=== PATIENT | female | born 1960 | race African-American/Black ===

== ENCOUNTER 2020-08-14 20:28 | Emergency (ER) | payer OTHER ==
--- OUTSIDE RECORDS SUMMARY | 2020-08-14 20:31 | XMS REPORT | Clinical Summary ---
:1961 Author Organization [facility] Address [address] [place] [address] Care Team Providers Name Role Phone Unavailable Primary Care Provider Unavailable Allergies Not on File Medications Not on file Active Problems Not on file Social History Tobacco Use Types Packs/Day Years Used Date Never Assessed Sex Assigned at Date Recorded Not on file Last Filed Vital Signs Not on file Plan of Treatment Health Maintenance Due Date Last Done Comments BREAST CANCER SCREENING 1961 COLON CANCER SCREENING COLONOSCOPY 1961 CERVICAL CANCER SCREENING PAP ONLY (Age 21-65) 12/30/1983 LIPID PANEL 12/30/2007 INFLUENZA VACCINE (#1) 2020 Results Not on fileafter 08/14/2019
[2020-08-14] MEDS ORDERED: TRAMADOL HCL 50 MG TAB ONE (20:57)
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
--- NOTE | 2020-08-14 21:26 | EDPHYS ---
Physician Documentation [facility] Name: Ashley Avlares Age: 59 yrs Sex: Female : 1960 Arrival Date: 08/14/2020 Time: 20:30 Bed 5 Private MD: ED Physician Rishi Kimbrough HPI: 08/14 20:45 This 59 yrs old Black Female presents to ER via Ambulatory with complaints of Thumb tw4 Injury. 20:45 The patient or guardian reports pain. The complaints affect the IP of left thumb and tw4 MCP of left thumb. Context: The problem was sustained at home. Onset: The symptoms/episode began/occurred 2 day(s) ago. Modifying factors: The symptoms are alleviated by nothing, the symptoms are aggravated by nothing. Severity of symptoms: At their worst the symptoms were moderate, in the emergency department the symptoms are unchanged. The patient has not experienced similar symptoms in the past. Historical: - Allergies: 20:39 Amoxicillin; ll1 - PMHx: 20:39 High Cholesterol; Hypertension; ll1 - PSHx: 20:39 Tubal ligation; Hernia repair; back sx; ll1 - Immunization history:: Flu vaccine is not up to date. - Social history:: Smoking status: Patient denies any tobacco usage or history of. ROS: 20:45 Constitutional: Negative for fever, chills, and weight loss, Eyes: Negative for injury, tw4 pain, redness, and discharge, Cardiovascular: Negative for chest pain, palpitations, and edema, Respiratory: Negative for shortness of breath, cough, wheezing, and pleuritic chest pain, Abdomen/GI: Negative for abdominal pain, nausea, vomiting, diarrhea, and constipation, Back: Negative for injury and pain, Skin: Negative for injury, rash, and discoloration, Neuro: Negative for headache, weakness, numbness, tingling, and seizure. 20:45 MS/extremity: Positive for swelling, tenderness. Exam: 20:45 Constitutional: This is a well developed, well nourished patient who is awake, alert, tw4 and in no acute distress. Head/Face: Normocephalic, atraumatic. Chest/axilla: Normal chest wall appearance and motion. Nontender with no deformity. No lesions are appreciated. Cardiovascular: Regular rate and rhythm with a normal S1 and S2. No gallops, murmurs, or rubs. Normal PMI, no JVD. No pulse deficits. Respiratory: Lungs have equal breath sounds bilaterally, clear to auscultation and percussion. No rales, rhonchi or wheezes noted. No increased work of breathing, no retractions or nasal flaring. Abdomen/GI: Soft, non-tender, with normal bowel sounds. No distension or tympany. No guarding or rebound. No evidence of tenderness throughout. Skin: Warm, dry with normal turgor. Normal color with no rashes, no lesions, and no evidence of cellulitis. Neuro: Awake and alert, GCS 15, oriented to person, place, time, and situation. Cranial nerves II-XII grossly intact. Motor strength 5/5 in all extremities. Sensory grossly intact. Cerebellar exam normal. Normal gait. 20:45 Musculoskeletal/extremity: Extremities: noted in the dorsal aspect of proximal phalanx of left thumb and left thumbnail: decreased ROM, pain, swelling, tenderness. Vital Signs: 20:37 BP 146 / 90; Pulse 73; Resp 16; Temp 97.9; Pulse Ox 100% ; Pain 4/10; ll1 21:36 BP 129 / 89; Pulse 71; Resp 16; Temp 98; Pulse Ox 99% on R/A; rv MDM: 20:32 Patient medically screened. tw4 21:24 Data reviewed: vital signs, nurses notes, radiologic studies, plain films. Special tw4 discussion: I discussed with the patient/guardian in detail that at this point there is no indication for admission to the hospital. It is understood, however, that if the symptoms persist or worsen the patient needs to return immediately for re-evaluation. 08/14 20:37 Order name: Hand Left 3 View XRAY tw4 Administered Medications: 20:46 Drug: traMADol 50 mg {Note: RASS 0.} Route: PO; rv 21:36 Follow up: Response: No adverse reaction; Pain is decreased; RASS: Alert and Calm (0) rv Disposition: 08/14/20 21:25 Discharged to Home. Impression: Contusion of left thumb without damage to nail. - Condition is Stable. - Discharge Instructions: Hand Contusion. - Prescriptions for Tramadol 50 mg Oral Tablet - take 1 tablet by ORAL route every 8 hours as needed; 12 tablet. - Medication Reconciliation Form, Thank You Letter, Antibiotic Education, Prescription Opioid Use form. - Follow up: Private Physician; When: Upon discharge from the Emergency Department; Reason: Recheck today's complaints, Continuance of care, Re-evaluation by your physician. - Problem is new. - Symptoms have improved. Signatures: Dispatcher [employer] EDRishi Ruiz MD MD tw4 Blayne Prasad RN RN rv Petra Henriquez RN RN ll1 Corrections: (The following items were deleted from the chart) 21:37 21:25 08/14/2020 21:25 Discharged to Home. Impression: Contusion of left thumb without rv damage to nail. Condition is Stable. Forms are Medication Reconciliation Form, Thank You Letter, Antibiotic Education, Prescription Opioid Use. Follow up: Private Physician; When: Upon discharge from the Emergency Department; Reason: Recheck today's complaints, Continuance of care, Re-evaluation by your physician. Problem is new. Symptoms have improved. tw4
[2020-08-14 21:53] VITALS: BP 129/89; TEMP 98; O2SAT 99
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
== END 2020-08-14 21:37 | disposition home or self-care (01) ==
LOC: ER 20:28
DX: S60.012A Contusion of left thumb without damage to nail, initial encounter (principal); W23.0XXA Caught, crushed, jammed, or pinched between moving objects, initial encounter; Y93.9 Activity, unspecified; Y92.9 Unspecified place or not applicable; Z88.1 Allergy status to other antibiotic agents; I10 Essential (primary) hypertension
CPT/HCPCS: 99284

== ENCOUNTER 2023-10-23 21:23 | Observation (INO) | payer OTHER ==
[2023-10-23] MEDS ORDERED: NA CHLORIDE 0.9% 2,000 ML ONE (21:49)
[2023-10-23 22:04] LABS: Absolute Lymphocytes (CBC) 1.2 K/uL (0.7-4.9); Lymphocytes % 12.3 % (15.3-44.8); MCV 96.2 fL (80-100); MPV 10.1 fL (7.6-11.3); Platelets 177 thou/uL (152-406); RBC Red Blood Cell Count 4.67 M/uL (3.86-4.86)
--- NOTE | 2023-10-23 22:21 | RAD REPORT ---
EXAM DESCRIPTION: Stepht Single View10/23/2023 10:09 pm CLINICAL HISTORY: CHEST PAIN COMPARISON: Chest Pa And Lat (2 Views) dated 01/29/2019; Chest Pa And Lat (2 Views) dated 09/20/2017; CHEST SINGLE VIEW dated 07/02/2010 TECHNIQUE: Portable AP view of the chest. FINDINGS: The lungs are clear. No pneumothorax or effusion. The cardiomediastinal contours are unre markable. IMPRESSION: No acute cardiopulmonary process.
[2023-10-23 22:23] LABS: Potassium 4.4 mEq/L (3.5-5.1); Troponin High Sensitivity 9.2 pg/mL (<58.9)
[2023-10-23] MEDS ORDERED: ONDANSETRON 4 MG/2 ML VIAL IV PRN (22:27)
[2023-10-23] MEDS ORDERED: ACETAMINOPHEN 325 MG TABLET PO PRN (22:27)
--- NOTE | 2023-10-23 22:27 | ER ---
Nurse's Notes [facility] Name: Ashley White Age: 62 yrs Sex: Female : 1960 Arrival Date: 10/23/2023 Time: 21:23 Bed 14 Private MD: Diagnosis: Hypotension, unspecified;Chest pain, unspecified;Dizziness and giddiness Presentation: 10/23 21:31 Chief complaint: EMS states: pt takes Metoprolol 50mg twice a day, pt took doses too rv close within each doses, pt is hypotensive at scene, complained of CP [employer], CP improved. pt is also complaining of dizziness and weakness upon arrival to ED. Coronavirus screen: At this time, the client does not indicate any symptoms associated with coronavirus-19. Ebola Screen: No symptoms or risks identified at this time. Initial Sepsis Screen: Does the patient meet any 2 criteria? No. Patient's initial sepsis screen is negative. Does the patient have a suspected source of infection? No. Patient's initial sepsis screen is negative. Risk Assessment: Do you want to hurt yourself or someone else? Patient reports no desire to harm self or others. Onset of symptoms. 21:31 Method Of Arrival: EMS: [facility] rv 21:31 Acuity: RAYO 2 rv Triage Assessment: 21:33 General: Appears comfortable, Behavior is calm, cooperative. Pain: Denies pain. Neuro: rv Level of Consciousness is awake, alert, obeys commands, Oriented to person, place, time, situation, Reports dizziness, weakness. Cardiovascular: Capillary refill < 3 seconds Patient's skin is warm and dry. Chest pain is denied. Respiratory: Airway is patent Respiratory effort is even, unlabored. GI: No signs and/or symptoms were reported involving the gastrointestinal system. : No signs and/or symptoms were reported regarding the genitourinary system. Derm: Skin is intact. Historical: - Allergies: 21:33 Amoxicillin; rv - PMHx: 21:33 High Cholesterol; Hypertension; Cerebrovascular accident; hernia; rv - PSHx: 21:33 None; rv - Immunization history:: Adult Immunizations up to date. - Social history:: Smoking status: Patient denies any tobacco usage or history of. Screenin:35 [facility] ED Fall Risk Assessment (Adult) History of falling in the last 3 months, rv including since admission No falls in past 3 months (0 pts) Confusion or Disorientation Yes (5 pts) Score/Fall Risk Level 3 or more points = High Risk Oriented to surroundings, Maintained a safe environment, Educated pt \T\ family on fall prevention, incl call for assistance when getting out of bed, Assessed \T\ reinforced patient's understanding of fall precautions, Provided non-skid footwear. Abuse screen: Denies threats or abuse. Denies injuries from another. Nutritional screening: No deficits noted. Tuberculosis screening: No symptoms or risk factors identified. Assessment: 21:30 General: Appears in no apparent distress. Behavior is calm, cooperative, appropriate la4 for age. 21:30 Neuro: Figueroa Agitation-Sedation Scale (RASS): 0 - Alert and Calm Level of la4 Consciousness is awake, alert, obeys commands, Report dizziness w/ movement. Oriented to person, place, time, situation, Appropriate for age. Cardiovascular: No deficits noted. Reports None Denies chest pain, Heart tones S1 S2 Capillary refill < 3 seconds is brisk Patient's skin is warm and dry. Pulses are all present. Rhythm is sinus rhythm with 1st degree heart block. Respiratory: No deficits noted. Airway is patent Trachea midline Respiratory effort is even, unlabored, Respiratory pattern is regular, symmetrical, Breath sounds are clear bilaterally. GI: No deficits noted. Bowel sounds present X 4 quads. Abd is soft and non tender X 4 quads. : No deficits noted. No signs and/or symptoms were reported regarding the genitourinary system. Derm: No deficits noted. Musculoskeletal: No deficits noted. 21:30 Reassessment: No changes from previously documented assessment. Pt reports still having la4 dizziness w/ movement. No distress noted and states she is feeling better. Vital Signs: 21:30 BP 75 / 59; Pulse 71; Resp 18; Pulse Ox 100% ; la4 21:31 BP 84 / 55; Pulse 69; Resp 18; Temp 98; Pulse Ox 99% ; Weight 80.29 kg; Height 5 ft. 10 rv in. ; 22:00 BP 84 / 60; Pulse 71; Resp 18; Pulse Ox 100% ; la4 22:27 BP 84 / 60; Pulse 69; Resp 18; Pulse Ox 98% ; la4 23:04 BP 98 / 65; Pulse 68; Resp 14; Pulse Ox 98% ; jb4 23:10 BP 107 / 69; Pulse 66; Resp 18; Pulse Ox 99% on R/A; Pain 0/10; la4 21:31 Body Mass Index 25.40 (80.29 kg, 177.8 cm) rv 23:10 Pain Scale: Adult la4 Melvin Coma Score: 21:30 Eye Response: spontaneous(4). Motor Response: obeys commands(6). Verbal Response: la4 oriented(5). Total: 15. 23:10 Eye Response: spontaneous(4). Motor Response: obeys commands(6). Verbal Response: la4 oriented(5). Total: 15. ED Course: 21:25 Patient arrived in ED. ec2 21:26 Chad Paul MD is Attending Physician. ec2 21:33 Triage completed. rv 21:33 Arm band placed on right wrist. rv 21:34 Thanh Charles RN is Primary Nurse. la4 21:35 Patient has correct armband on for positive identification. Client placed on continuous rv cardiac and pulse oximetry monitoring. NIBP monitoring applied. property assessment monitor on. 21:40 No apparent distress. Awaiting bed assignment, Awaiting lab results. la4 21:40 No provider procedures requiring assistance completed. Inserted saline lock: 20 gauge la4 in right forearm, using aseptic technique. Blood collected. 22:00 Provided Education on: Plan of care. la4 22:08 Basic Metabolic Panel Sent. la4 22:08 Troponin HS Sent. la4 22:08 NT PRO-BNP Sent. la4 22:11 XRAY Chest (1 view) In Process Unspecified. EDMS 22:26 Ender Ritchie MD is Hospitalizing Provider. ec2 23:10 Awaiting: transport to floor. la4 23:10 Patient admitted, IV remains in place. intact. la4 Administered Medications: 22:03 Drug: NS 0.9% IV 1000 ml IV at 1 bolus Per protocol; 1000 mL bolus Route: IV; Rate: 1 la4 bolus; Site: right forearm; 22:27 Follow up: BP 84 / 60; Pulse 69 bpm; Resp 18 bpm; Pulse Ox 98% ; IV Status: Infusion la4 continued; IV Intake: 300ml 22:33 Drug: NS 0.9% IV 1000 ml IV at 1 bolus Per protocol; 1000 mL bolus Route: IV; Rate: 1 la4 bolus; Site: right forearm; Medication: 21:35 VIS not applicable for this client. rv Intake: 22:27 IV: 300ml; Total: 300ml. [email or web address] Outcome: 22:26 Decision to Hospitalize by Provider. ec2 23:10 Admitted to Tele via stretcher, room 406, Report called to Louisa huntley 23:10 Condition: improved 23:10 Instructed on the need for admit, Demonstrated understanding of admission monitoring, room number and plan of care 10/24 01:01 Patient left the ED. jb4 Signatures: Dispatcher [employer] EDJan Chavarria, RN RN jb4 Blayne Prasad RN RN Chad Bustamante MD MD ec2 Thanh Charles RN RN la4
--- NOTE | 2023-10-23 22:27 | EDPHYS ---
Physician Documentation [facility] Name: Ashley Alv[facility] Age: 62 yrs Sex: Female : 1960 Arrival Date: 10/23/2023 Time: 21:23 Bed 14 Private MD: ED Physician Chad Paul HPI: 10/23 21:26 This 62 yrs old Black Female presents to ER via Unassigned with complaints of ec2 lightheadedness and CP. 21:26 Patient arrives today for evaluation of lightheadedness and chest pain. Patient reports ec2 that she forgot to take her morning dose of high blood pressure medications, subsequently took it at 1 PM and took her second dose of blood pressure medication at 7 PM. States that she felt lightheaded like she was in a pass out. Reports that she had some transient chest pain that was left of the sternum. Reports no exertional component. Reports a history of hypertension hyperlipidemia.. Historical: - Allergies: 21:33 Amoxicillin; rv - PMHx: 21:33 High Cholesterol; Hypertension; Cerebrovascular accident; hernia; rv - PSHx: 21:33 None; rv - Immunization history:: Adult Immunizations up to date. - Social history:: Smoking status: Patient denies any tobacco usage or history of. ROS: 21:26 Constitutional: as per hpi ec2 Exam: 21:26 Constitutional: GEN: NAD Head: atraumatic Eyes: EOMI Ears: External ears are ec2 normal. CV: regular rate LUNGS: no respiratory distress ABD: non-distended SKIN: no evidence of rashes MSK: no evidence of trauma NEURO: moves all extremities equally Vital Signs: 21:30 BP 75 / 59; Pulse 71; Resp 18; Pulse Ox 100% ; la4 21:31 BP 84 / 55; Pulse 69; Resp 18; Temp 98; Pulse Ox 99% ; Weight 80.29 kg; Height 5 ft. 10 rv in. ; 22:00 BP 84 / 60; Pulse 71; Resp 18; Pulse Ox 100% ; la4 22:27 BP 84 / 60; Pulse 69; Resp 18; Pulse Ox 98% ; la4 23:04 BP 98 / 65; Pulse 68; Resp 14; Pulse Ox 98% ; jb4 23:10 BP 107 / 69; Pulse 66; Resp 18; Pulse Ox 99% on R/A; Pain 0/10; la4 21:31 Body Mass Index 25.40 (80.29 kg, 177.8 cm) rv 23:10 Pain Scale: Adult la4 Melvin Coma Score: 21:30 Eye Response: spontaneous(4). Motor Response: obeys commands(6). Verbal Response: la4 oriented(5). Total: 15. 23:10 Eye Response: spontaneous(4). Motor Response: obeys commands(6). Verbal Response: la4 oriented(5). Total: 15. MDM: 21:26 Patient medically screened. ec2 21:26 ED course: Patient arrives today for evaluation of lightheadedness and chest pain. ec2 Examination remarkable for well-appearing nontoxic dividual is otherwise in no acute distress with a reassuring examination. Will obtain lab work, EKG, chest x-ray for further assessment patient complaint. Currently considering ACS, low suspicion for PE or dissection, additionally consider medication side effect given the proximity in time regarding antihypertensive administration.. 22:02 Data reviewed: vital signs. ED course: EKG independently reviewed and interpreted by ec2 me, shows normal sinus rhythm, rate 70, no acute ST segment elevations, nonconcerning intervals, first-degree AV block noted.. 22:25 ED course: Metabolic profile shows renal dysfunction with a creatinine of 4.05 and a ec2 GFR of 11. Troponin and BNP within normal ranges. Metabolic profile is reassuring, CBC is reassuring, troponin within normal ranges, BMP within normal ranges. Chest x-ray shows no acute intrathoracic process. Will admit for observation, discussed case with hospitalist, who will admit.. 10/23 21:26 Order name: Basic Metabolic Panel; Complete Time: 22:24 ec2 10/23 21:26 Order name: CBC with Diff; Complete Time: 22:24 ec2 10/23 21:26 Order name: NT PRO-BNP; Complete Time: 22:24 ec2 10/23 21:26 Order name: Troponin HS; Complete Time: 22:24 ec2 10/23 22:33 Order name: Troponin High Sensitivity EDMS 10/23 22:33 Order name: CBC with Automated Diff EDMS 10/23 22:33 Order name: CBC with Automated Diff EDMS 10/23 22:33 Order name: Comprehensive Metabolic Panel EDMS 10/23 22:33 Order name: Comprehensive Metabolic Panel EDMS 10/23 21:26 Order name: XRAY Chest (1 view); Complete Time: 22:24 ec2 10/23 21:26 Order name: EKG; Complete Time: : ec2 10/23 21:26 Order name: Cardiac monitoring; Complete Time: 22:03 ec2 10/23 21:26 Order name: EKG - Nurse/Tech; Complete Time: 22:03 ec2 10/23 21:26 Order name: IV Saline Lock; Complete Time: 22: ec2 10/23 21:26 Order name: Labs collected and sent; Complete Time: 22:03 ec2 10/23 21:26 Order name: O2 Per Protocol; Complete Time: 22: ec2 10/23 21: Order name: O2 Sat Monitoring; Complete Time: : ec2 Administered Medications: 22:03 Drug: NS 0.9% IV 1000 ml IV at 1 bolus Per protocol; 1000 mL bolus Route: IV; Rate: 1 la4 bolus; Site: right forearm; 22:27 Follow up: BP 84 / 60; Pulse 69 bpm; Resp 18 bpm; Pulse Ox 98% ; IV Status: Infusion la4 continued; IV Intake: 300ml 22:33 Drug: NS 0.9% IV 1000 ml IV at 1 bolus Per protocol; 1000 mL bolus Route: IV; Rate: 1 la4 bolus; Site: right forearm; Disposition Summary: 10/23/23 22:26 Hospitalization Ordered Notes: Hospitalization Status: Observation ec2 Provider: Ender Ritchie Location: Telemetry/[facility] (observation) ec2 Condition: Stable ec2 Problem: new ec2 Symptoms: have improved ec2 Bed/Room Type: Standard ec2 Room Assignment: 406(10/23/23 22:38) jb4 Diagnosis - Hypotension, unspecified ec2 - Chest pain, unspecified ec2 - Dizziness and giddiness ec2 Forms: - Medication Reconciliation Form ec2 - SBAR form ec2 - Leadership Thank You Letter ec2 Signatures: Dispatcher [employer] Jan Singh RN RN jb4 Blayne Prasad RN RN rv Corral, Edwin, MD MD ec2 Thanh Charles RN RN la4 Corrections: (The following items were deleted from the chart) 22:38 22:26 ec2 jb4
[2023-10-24 01:43] VITALS: BMI 23.6
[2023-10-24 06:19] LABS: Absolute Lymphocytes (CBC) 1.6 K/uL (0.7-4.9); Hematocrit 35.8 % (36.0-45.0); Lymphocytes % 31.3 % (15.3-44.8); MCV 92.2 fL (80-100); MPV 9.3 fL (7.6-11.3); Platelets 236 thou/uL (152-406); RBC Red Blood Cell Count 3.88 M/uL (3.86-4.86)
[2023-10-24 06:27] LABS: Bilirubin Total 0.7 mg/dL (0.2-1.0); Potassium 3.8 mEq/L (3.5-5.1); Protein, Total 6.9 g/dL (6.4-8.2)
[2023-10-24 09:20] VITALS: O2SAT 93
[2023-10-24 09:51] VITALS: BP 133/76; TEMP 96.4
--- NOTE | 2023-10-25 06:21 | SS ---
Date of Discharge: 10/24/2023 Chief Complaint: Dizziness, weakness, chest pain. History Of Present Illness: This is a 62-year-old pleasant female patient who takes metoprolol 50 mg 2 times a day and olmesartan/hydrochlorothiazide 20/12.5 mg once a day along with her other usual me dication, was doing fine in her normal usual state of health. Until today, she took her olmesartan a nd metoprolol around 1 o'clock in the afternoon and then she took the metoprolol second dose, which s he is supposed to take it 2 times a day. She took it in p.m. or so. She took this medication while she was sitting at the dining table eating and sometime after taking the medication the patient start ed feeling very weak, dizzy, and felt like she was going to fall asleep. Her family was there, they contacted emergency and the patient was brought into the emergency room. She also reported that she had chest pain that lasted probably for about 5 minutes or so and then it resolved spontaneously and has not had any complaints of any chest pain after that. She came into the emergency room. Her init ial blood pressure was very low and subsequently IV fluid was given and the patient was admitted to [facility]. Overnight, her condition has remained stable. This morning when I saw her, she was asy mptomatic. Allergies: NO KNOWN ALLERGIES. Medications: 1.Aspirin 81 mg daily. 2.Vitamin D3 5000 unit daily. 3.Gabapentin 100 mg 2 times a day. 4.Metoprolol 100 mg, she takes half a tablet 2 times a day. 5.Olmesartan/hydrochlorothiazide 20/12.5 one tablet daily. 6.Rosuvastatin 10 mg daily at bedtime. 7.Tizanidine 4 mg daily at bedtime. Review of Systems: Cardiovascular: As mentioned above. Constitutional: As mentioned above. All other systems reviewed and negative. Social History: Negative for smoking and alcohol use. Family History: Father has stroke, hypertension, hyperlipidemia, chronic kidney disease. Mother has hypertension and hyperlipidemia. Past Medical History: Significant for hypertension, hyperlipidemia, impaired fasting glucose, leukoc ytopenia. Past Surgical History: Umbilical hernia repair, tubal ligation. Physical Examination: VITAL SIGNS: This morning, temperature 97.1, pulse 57, respiratory rate 18, blood pressure 120/70, o xygen saturation 97% on room air, height 5 feet 10 inches, weight 165 pounds. Her initial blood pres sure when she first came into the emergency room was 75/59. General: Awake, alert, oriented, not in distress. HEENT: Head atraumatic, normocephalic. Conjunctivae nonerythematous. Sclerae white. Mouth, no thr ush or edema noted. Ears/Nose, no mass, lesion, discharge noted. Neck: Supple. No JVD, lymph nodes, bruit, thyromegaly noted. Lungs: Bilateral good equal air entry. Clear to auscultation. No rhonchi. No rales. Heart: Normal heart sounds, no murmur or gallop. Abdomen: Soft, bowel sounds normal. No guarding, rigidity, tenderness, mass, hepatosplenomegaly, dis tention, or bruit noted. Extremities: No leg edema. No calf tenderness. Skin: No rash, ulcer, cellulitis. Lymphatics: No lymph node enlargement in neck, supraclavicular, infraclavicular region. Neuro: No focal neurological deficit. Chest: Unremarkable. External Genitalia: Deferred. Rectal: Deferred. Laboratory Data: Last night when she came into the ER, white blood count was 10.10, hemoglobin 15.1, platelets 177. This morning, white count 5, hemoglobin 12.5, platelets 236. Chemistry; last night, sodium 137, potassium 4.4, chloride 107, bicarb 24, BUN 25, creatinine 1.31, glucose 90. ProBNP 167 . Initial troponin 9.2, second troponin 5.2, and this morning last troponin was normal as well. Rhiannon becki this morning, sodium 138, potassium 3.8, chloride 107, bicarb 27, BUN 21, creatinine 1.22, glu cose 86. Liver function tests unremarkable. Chest x-ray did not show any acute cardiopulmonary albarran ges. EKG was normal sinus rhythm. No acute changes. Hospital Course: After patient was evaluated in the emergency room, she was admitted to the hospital . IV fluid was given. Overnight, her condition has remained stable. NC was ruled out and this morn ing patient was discharged to go home in stable condition. The patient reports that about 3 months a go or so she had seen client services analyst on outpatient basis and had a negative cardiac workup done and we will request a copy of that information on outpatient basis. Discharge Medications And Instructions: Continue all prior home medication except following changes. 1.Stop metoprolol 100 mg half tablet 2 times a day dose. 2.Stop olmesartan/hydrochlorothiazide 20/12.5 mg. 3.Start metoprolol 25 mg take 1 tablet 2 times a day and start olmesartan 20 mg 1 tablet daily. 4.Check blood pressure every morning and every evening before taking blood pressure medication dose, record it and bring it to office next week at time of followup visit. 5.Follow up at my office next week. 6.Drink 60-80 ounce water daily. Final Diagnoses: 1.Hypotension. 2.Chest pain. 3.Hypertension. 4.Hyperlipidemia. 5.Impaired fasting glucose. 6.Leukocytopenia. MING/MODL Voice ID: [id number] Report ID: [id number]
== END 2023-10-24 10:00 | disposition home or self-care (01) ==
LOC: ER 21:23 → 4TH 22:27
PROVIDERS: ADMIT Internal Medicine; ATTEND Internal Medicine
DX: I95.9 Hypotension, unspecified (principal); R07.9 Chest pain, unspecified; I10 Essential (primary) hypertension; E78.5 Hyperlipidemia, unspecified; R73.01 Impaired fasting glucose; D72.819 Decreased white blood cell count, unspecified
CPT/HCPCS: 93005; 85025 ×2; 80048; 36415 ×2; 84484 ×3; 80053; 83880; 71045; J7030; G0378

== ENCOUNTER → 2023-12-28 | Emergency (ER) | payer OTHER ==
[~2023-12-28] MED LIST: FENTANYL CITR 100 MCG/2 ML ONE; KETOROLAC 30 MG/ML INJ ONE; NA CHLORIDE 0.9% 1,000 ML ONE; ONDANSETRON 4 MG/2 ML VIAL ONE
[2023-12-28 13:03] LABS: Absolute Eosinophils 0.1 K/uL (0-0.5); Absolute Lymphocytes (CBC) 1.1 K/uL (0.7-4.9); Absolute Monocytes 0.2 K/uL (0.1-1.3); Absolute Neutrophil 1.8 K/uL (1.8-8.0); Basophils % 1.4 % (0-1.3); Eosinophils % 2.5 % (0-4.4); Hematocrit 44.2 % (36.0-45.0); Hemoglobin 14.9 g/dL (12.0-15.0); Lymphocytes % 35.1 % (15.3-44.8); MCH 31.7 pg (27.0-35.0); MCHC 33.7 g/dL (32.0-36.0); MCV 94.1 fL (80-100); MPV 9.5 fL (7.6-11.3); Monocytes % 6.6 % (3.3-12.3); Neutrophils % 54.4 % (41.7-73.7); Nucleated Red Blood Cells % 0.2 % (0-0); Platelets 248 thou/uL (152-406); Red Cell Distribution Width 13.9 % (12.1-15.2)
[2023-12-28 13:14] LABS: PT Prothrombin Time 11.8 SECONDS (9.5-12.5); Protime INR 1.07
[2023-12-28 13:23] LABS: Albumin 3.8 g/dL (3.4-5.0); Albumin/Globulin Ratio 0.8 (1.1-1.8); Anion Gap 6.2 mEq/L (5.0-15.0); Bilirubin Direct 0.3 mg/dL (0-0.2); Bilirubin Indirect, Calculated 0.8 mg/dL (0.2-0.8); Bilirubin Total 1.1 mg/dL (0.2-1.0); Potassium 3.2 mEq/L (3.5-5.1); Protein, Total 8.8 g/dL (6.4-8.2); Troponin High Sensitivity 3.9 pg/mL (<58.9)
--- NOTE | 2023-12-28 13:26 | RAD REPORT ---
EXAM DESCRIPTION: RAD - Chest Single View - 12/28/2023 1:17 pm CLINICAL HISTORY: COUGH Chest pain. COMPARISON: Chest Single View dated 10/23/2023; Chest Pa And Lat (2 Views) dated 01/29/2019; Chest Pa And Lat (2 Views) dated 09/20/2017; CHEST SINGLE VIEW dated 07/02/2010 FINDINGS: Portable technique limits examination quality. The lungs are grossly clear. The heart is normal in size. No displaced fractures. IMPRESSION: No acute intrathoracic process suspected.
--- NOTE | 2023-12-28 13:27 | RAD REPORT ---
EXAM DESCRIPTION: CT - Head Brain Wo Cont - 12/28/2023 1:10 pm CLINICAL HISTORY: HEADACHE Headache, drowsiness COMPARISON: Sinus Wo Cont dated 12/28/2020; HEAD BRAIN W O CONTRAST dated 08/07/2012 TECHNIQUE: All CT scans are performed using dose optimization technique as appropriate and may inclu de automated exposure control or mA/KV adjustment according to patient size. FINDINGS: No intracranial hemorrhage, hydrocephalus or extra-axial fluid collection.No areas of brai n edema or evidence of midline shift. Small polyp versus mucous retention cyst left maxillary antrum. The paranasal sinuses and mastoids ar e otherwise clear. The calvarium is intact. IMPRESSION: No acute intracranial abnormality.
--- NOTE | 2023-12-28 15:25 | ER ---
Nurse's Notes [facility] Name: Ashley White Age: 62 yrs Sex: Female : 1960 Arrival Date: 12/28/2023 Time: 12:15 Bed 16 Private MD: Ender Ritchie C Diagnosis: Essential (primary) hypertension;Headache;Hypokalemia Presentation: 12/27 12:25 Chief complaint: Patient states: my head hurts real bad, pain to back of my head and iw behind my ears, started this morning, has taken two Benadryl sinus medicine and some supplements from the [facility]. Coronavirus screen: At this time, the client does not indicate any symptoms associated with coronavirus-19. Ebola Screen: Patient negative for fever greater than or equal to 101.5 degrees Fahrenheit, and additional compatible Ebola Virus Disease symptoms Patient denies exposure to infectious person. Patient denies travel to an Ebola-affected area in the 21 days before illness onset. No symptoms or risks identified at this time. Initial Sepsis Screen: Does the patient meet any 2 criteria? No. Patient's initial sepsis screen is negative. Does the patient have a suspected source of infection? No. Patient's initial sepsis screen is negative. Risk Assessment: Do you want to hurt yourself or someone else?. Onset of symptoms was December 28, 2023. 12:25 Method Of Arrival: Ambulatory iw 12:25 Acuity: RAYO 3 iw Triage Assessment: 16:24 Pain: Also complains of no other associated symptoms. me1 Historical: - Allergies: 12:27 Amoxicillin; iw - PMHx: 12:27 Cerebrovascular accident; Hernia; High Cholesterol; Hypertension; iw - Immunization history:: Adult Immunizations not up to date. - Social history:: Smoking status: Patient denies any tobacco usage or history of. Screenin:40 [facility] ED Fall Risk Assessment (Adult) History of falling in the last 3 months, me1 including since admission No falls in past 3 months (0 pts) Confusion or Disorientation No (0 pts) Intoxicated or Sedated No (0 pts) Impaired Gait No (0 pts) Mobility Assist Device Used No (0 pt) Altered Elimination No (0 pt) Score/Fall Risk Level 0 - 2 = Low Risk Maintained a safe environment, Provided non-skid footwear, Hourly rounding (assess needs \T\ fall precautionary measures) done. Abuse screen: Denies threats or abuse. Nutritional screening: No deficits noted. Tuberculosis screening: No symptoms or risk factors identified. Assessment: 12:40 General: Appears uncomfortable, well groomed, well developed, well nourished, Behavior me1 is calm, cooperative, appropriate for age, Reports my head hurts real bad, pain to back of my head and behind my ears, started this morning, has taken two Benadryl sinus medicine and some supplements from the nutrition place. Pain: Complains of pain in right base of the skull and right occipital area and right side of the back of head and right frontal area and left frontal area Pain does not radiate. Pain currently is 7 out of 10 on a pain scale. Quality of pain is described as aching, Pain began gradually, this morning Is continuous. Neuro: Level of Consciousness is awake, alert, obeys commands, Oriented to person, place, time, situation, Appropriate for age Reports headache. Cardiovascular: Patient's skin is warm and dry. Respiratory: Respiratory effort is even, unlabored, Respiratory pattern is regular, symmetrical. Derm: Skin is pink, warm \T\ dry. 13:30 Reassessment: No changes from previously documented assessment. Patient and/or family me1 updated on plan of care and expected duration. Pain level reassessed. 14:30 Reassessment: No changes from previously documented assessment. me1 15:30 Reassessment: Patient and/or family updated on plan of care and expected duration. Pain me1 level reassessed. Patient is alert, oriented x 3, equal unlabored respirations, skin warm/dry/pink. Patient states feeling better. Patient states symptoms have improved. 16:05 Reassessment: No changes from previously documented assessment. Patient and/or family me1 updated on plan of care and expected duration. Pain level reassessed. Patient is alert, oriented x 3, equal unlabored respirations, skin warm/dry/pink. Vital Signs: 12:25 BP 161 / 92; Pulse 72; Resp 18; Temp 98.2; Pulse Ox 99% ; Weight 79.38 kg; Height 5 ft. iw 10 in. ; Pain 8/10; 13:30 BP 167 / 93; Pulse 71; Resp 16; Pulse Ox 97% on R/A; me1 14:00 BP 142 / 82; Pulse 73; Resp 18; Pulse Ox 97% on R/A; me1 15:00 BP 157 / 88; Pulse 71; Resp 16; Pulse Ox 98% on R/A; me1 16:00 BP 146 / 85; Pulse 77; Resp 14; Pulse Ox 97% on R/A; me1 12:25 Body Mass Index 25.11 (79.38 kg, 177.8 cm) iw 12:25 Pain Scale: Adult iw Mackey Coma Score: 15:00 Eye Response: spontaneous(4). Motor Response: obeys commands(6). Verbal Response: lory oriented(5). Total: 15. ED Course: 12:20 Patient arrived in ED. mr 12:21 Ender Ritchie MD is Private Physician. mr 12:27 Triage completed. iw 12:27 Arm band placed on. iw 12:34 Octaviano Barrientos MD is Attending Physician. lory 12:40 Patient has correct armband on for positive identification. Bed in low position. Call me1 light in reach. Side rails up X 1. Provided Education on: POC. Verbalized understanding. . 12:40 No provider procedures requiring assistance completed. me1 12:55 Basic Metabolic Panel Sent. bc6 12:55 CBC with Diff Sent. bc6 12:55 LFT's Sent. bc6 12:55 Magnesium Sent. bc6 12:55 NT PRO-BNP Sent. bc6 12:55 PT-INR Sent. bc6 12:55 Troponin HS Sent. bc6 12:55 Inserted saline lock: 22 gauge in left antecubital area, using aseptic technique. Blood bc6 collected. 13:02 EKG done, by ED staff, reviewed by Octaviano Barrientos MD. bc6 13:11 CT Head Brain wo Cont In Process Unspecified. EDMS 13:15 XRAY Chest (1 view) In Process Unspecified. EDMS 13:55 Yuko Alejandro, JESSIKA is Primary Nurse. me1 15:24 Ender Ritchie MD is Referral Physician. lory 16:25 IV discontinued, intact, bleeding controlled, No redness/swelling at site. Pressure me1 dressing applied. Administered Medications: 14:47 Drug: NS 0.9% IV 1000 ml IV at 75 ml/hr continuous Route: IV; Rate: 75 ml/hr; Site: me1 left antecubital; 16:16 Follow up: Response: No adverse reaction; IV Status: Completed infusion; IV Intake: me1 225ml 14:47 Drug: Ketorolac IVP 15 mg IVP once Route: IVP; Site: left antecubital; me1 16:16 Follow up: Response: No adverse reaction; Pain is decreased me1 14:47 Drug: Ondansetron IVP 4 mg IVP once; over 2 minutes Route: IVP; Site: left antecubital; me1 16:16 Follow up: Response: No adverse reaction; Nausea is decreased me1 14:47 Drug: fentaNYL (PF) IVP 25 mcg IVP once Route: IVP; Site: left antecubital; me1 16:16 Follow up: Response: No adverse reaction; Pain is decreased me1 Medication: 12:40 VIS not applicable for this client. me1 Intake: 16:16 IV: 225ml; Total: 225ml. me1 Outcome: 15:25 Discharge ordered by . [facility] 16:24 Discharged to home ambulatory, [facility] 16:24 Condition: stable 16:24 Discharge instructions given to patient, Instructed on discharge instructions, follow up and referral plans. medication usage, Demonstrated understanding of instructions, follow-up care, medications, Prescriptions given X 2, 16:25 Patient left the ED. me1 Signatures: Dispatcher [employer] EDMS Octaviano Barrientos MD MD cha Rivera, Mary, [facility] Reg mr Kathy Gaona, RN RN Cordelia You [facility] Yuko Alejandro RN RN me1 Corrections: (The following items were deleted from the chart) 12:28 12:25 BP 161 / 92; Pulse 72bpm; Resp 18bpm; Pulse Ox 99%; iw iw 13:26 12:25 BP 161 / 92; Pulse 72bpm; Resp 18bpm; Pulse Ox 99%; 79.38 kg; Height 5 ft. 10 iw in.; BMI: 25.1; Pain 8/10, Adult; iw 16:17 12:25 Chief complaint: Patient states: my head hurts real bad, pain to back of my head me1 and behind my ears, started this morning, has taken two Benadryl sinus medicine and some supplements from the [facility]. 16:18 12:25 Chief complaint: Patient states: my head hurts real bad, pain to back of my head me1 and behind my ears, started this morning, has taken two Benadryl sinus medicine and some supplements from the [facility]. me1 16:20 12:40 General: Appears uncomfortable, well groomed, well developed, well nourished, me1 Behavior is calm, cooperative, appropriate for age, Reports me1
--- NOTE | 2023-12-28 15:25 | EDPHYS ---
Physician Documentation [facility] Name: Ashley Alvares Age: 62 yrs Sex: Female : 1960 Arrival Date: 12/28/2023 Time: 12:15 Bed 16 Private MD: Ender Ritchie C ED Physician Octaviano Barrientos HPI: 12/27 14:47 This 62 yrs old Black Female presents to ER via Ambulatory with complaints of Headache, lory High Blood Pressure. 14:47 The patient complains of pain to the left frontal area, right frontal area, right side lory of the back of head, right occipital area and right base of the skull. The patient describes the headache as aching. Onset: The symptoms/episode began/occurred 1 day(s) ago. Associated signs and symptoms: The patient has no apparent associated signs or symptoms. Severity of symptoms: At its worst the pain was mild, moderate, in the emergency department the pain has improved, mildly. Headache History: The patient has had previous headaches and this one is similar to previous episodes. The symptoms are alleviated by nothing. the symptoms are aggravated by nothing. The patient has experienced similar episodes in the past, a few times. Historical: - Allergies: 12:27 Amoxicillin; iw - PMHx: 12:27 Cerebrovascular accident; Hernia; High Cholesterol; Hypertension; iw - Immunization history:: Adult Immunizations not up to date. - Social history:: Smoking status: Patient denies any tobacco usage or history of. ROS: 14:48 Constitutional: Negative for fever, chills, and weight loss, Eyes: Negative for injury, lory pain, redness, and discharge, ENT: Negative for injury, pain, and discharge, Neck: Negative for injury, pain, and swelling, Cardiovascular: Negative for chest pain, palpitations, and edema, Respiratory: Negative for shortness of breath, cough, wheezing, and pleuritic chest pain, Abdomen/GI: Negative for abdominal pain, nausea, vomiting, diarrhea, and constipation, Back: Negative for injury and pain, : Negative for injury, bleeding, discharge, and swelling, MS/Extremity: Negative for injury and deformity, Skin: Negative for injury, rash, and discoloration, Psych: Negative for depression, anxiety, suicide ideation, homicidal ideation, and hallucinations, Allergy/Immunology: Negative for hives, rash, and allergies, Endocrine: Negative for neck swelling, polydipsia, polyuria, polyphagia, and marked weight changes, Hematologic/Lymphatic: Negative for swollen nodes, abnormal bleeding, and unusual bruising, 14:48 Neuro: Positive for headache, Exam: 14:53 Constitutional: This is a well developed, well nourished patient who is awake, alert, lory and in no acute distress. Head/Face: Normocephalic, atraumatic. Eyes: Pupils equal round and reactive to light, extra-ocular motions intact. Lids and lashes normal. Conjunctiva and sclera are non-icteric and not injected. Cornea within normal limits. Periorbital areas with no swelling, redness, or edema. ENT: Nares patent. No nasal discharge, no septal abnormalities noted. Tympanic membranes are normal and external auditory canals are clear. Oropharynx with no redness, swelling, or masses, exudates, or evidence of obstruction, uvula midline. Mucous membranes moist. Neck: Trachea midline, no thyromegaly or masses palpated, and no cervical lymphadenopathy. Supple, full range of motion without nuchal rigidity, or vertebral point tenderness. No Meningismus. Chest/axilla: Normal chest wall appearance and motion. Nontender with no deformity. No lesions are appreciated. Cardiovascular: Regular rate and rhythm with a normal S1 and S2. No gallops, murmurs, or rubs. Normal PMI, no JVD. No pulse deficits. Respiratory: Lungs have equal breath sounds bilaterally, clear to auscultation and percussion. No rales, rhonchi or wheezes noted. No increased work of breathing, no retractions or nasal flaring. Abdomen/GI: Soft, non-tender, with normal bowel sounds. No distension or tympany. No guarding or rebound. No evidence of tenderness throughout. Back: No spinal tenderness. No costovertebral tenderness. Full range of motion. Skin: Warm, dry with normal turgor. Normal color with no rashes, no lesions, and no evidence of cellulitis. MS/ Extremity: Pulses equal, no cyanosis. Neurovascular intact. Full, normal range of motion. Neuro: Awake and alert, GCS 15, oriented to person, place, time, and situation. Cranial nerves II-XII grossly intact. Motor strength 5/5 in all extremities. Sensory grossly intact. Cerebellar exam normal. Normal gait. Psych: Awake, alert, with orientation to person, place and time. Behavior, mood, and affect are within normal limits. 14:53 ECG was reviewed by the Attending Physician. Vital Signs: 12:25 BP 161 / 92; Pulse 72; Resp 18; Temp 98.2; Pulse Ox 99% ; Weight 79.38 kg; Height 5 ft. iw 10 in. ; Pain 8/10; 13:30 BP 167 / 93; Pulse 71; Resp 16; Pulse Ox 97% on R/A; me1 14:00 BP 142 / 82; Pulse 73; Resp 18; Pulse Ox 97% on R/A; me1 15:00 BP 157 / 88; Pulse 71; Resp 16; Pulse Ox 98% on R/A; me1 16:00 BP 146 / 85; Pulse 77; Resp 14; Pulse Ox 97% on R/A; me1 12:25 Body Mass Index 25.11 (79.38 kg, 177.8 cm) iw 12:25 Pain Scale: Adult iw Melvin Coma Score: 15:00 Eye Response: spontaneous(4). Motor Response: obeys commands(6). Verbal Response: lory oriented(5). Total: 15. MDM: 12:34 Patient medically screened. lory 15:00 Differential diagnosis: hypertensive headache, hypoglycemia, hyponatremia, lory intracerebral hemorrhage, migraine, neoplasm, subarachnoid bleed, subdural hematoma, temporal arteritis, tension headache, traumatic injuries, trigeminal neuralgia, vasomotor headache. Differential Diagnosis altered mental status. Data reviewed: vital signs, nurses notes, lab test result(s), EKG, radiologic studies, CT scan. Consideration of Admission/Observation Escalation of care including admission/observation considered. I considered the following discharge prescriptions or medication management in the emergency department Medications were administered in the Emergency Department. See MAR. Independent interpretation of the following test(s) in the Emergency Department EKG: See my EKG interpretation above. Test considered but Not performed: MRI: NO MRI BRAIN. Historians other than the Patient: PATIENT WELL INFORMED. Care significantly affected by the following chronic conditions: Hypertension. 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 12/27 12:42 Order name: Basic Metabolic Panel; Complete Time: 14:42 [facility] 12/27 12:42 Order name: CBC with Diff; Complete Time: 13:16 [facility] 12/27 12:42 Order name: LFT's; Complete Time: 14:42 [facility] 12/27 12:42 Order name: Magnesium; Complete Time: 14:42 [facility] 12/27 12:42 Order name: NT PRO-BNP; Complete Time: 14:42 [facility] 12/27 12:42 Order name: PT-INR; Complete Time: 13:16 [facility] 12/27 12:42 Order name: Troponin HS; Complete Time: 14:42 [facility] 12/27 12:37 Order name: CT Head Brain wo Cont; Complete Time: 14:42 aa5 12/27 12:42 Order name: XRAY Chest (1 view); Complete Time: 14:42 [facility] 12/27 12:42 Order name: EKG; Complete Time: 12:42 [facility] 12/27 12:42 Order name: Cardiac monitoring; Complete Time: 14:47 [facility] 12/27 12:42 Order name: EKG - Nurse/Tech; Complete Time: 12:55 [facility] 12/27 12:42 Order name: IV Saline Lock; Complete Time: 12:55 [facility] 12/27 12:42 Order name: Labs collected and sent; Complete Time: 12:55 [facility] 12/27 12:42 Order name: O2 Per Protocol; Complete Time: 14:47 [facility] 12/27 12:42 Order name: O2 Sat Monitoring; Complete Time: 14:47 lory EC:53 Rate is 69 beats/min. Rhythm is regular. QRS [place] is Normal. NM interval is prolonged lory at 262 msec. QRS interval is normal. QT interval is normal. No Q waves. T waves are Normal. No ST changes noted. Clinical impression: NSR w/ Non-specific ST/T Changes, 1st degree heart block, and No evidence of ischemia. Interpreted by me. Reviewed by me. Administered Medications: 14:47 Drug: NS 0.9% IV 1000 ml IV at 75 ml/hr continuous Route: IV; Rate: 75 ml/hr; Site: ms1 left antecubital; 16:16 Follow up: Response: No adverse reaction; IV Status: Completed infusion; IV Intake: ms1 225ml 14:47 Drug: Ketorolac IVP 15 mg IVP once Route: IVP; Site: left antecubital; me1 16:16 Follow up: Response: No adverse reaction; Pain is decreased me1 14:47 Drug: Ondansetron IVP 4 mg IVP once; over 2 minutes Route: IVP; Site: left antecubital; me1 16:16 Follow up: Response: No adverse reaction; Nausea is decreased me1 14:47 Drug: fentaNYL (PF) IVP 25 mcg IVP once Route: IVP; Site: left antecubital; me1 16:16 Follow up: Response: No adverse reaction; Pain is decreased me1 Disposition Summary: 12/28/23 15:25 Discharge Ordered Notes: Location: Home lory Problem: new lory Symptoms: have improved lory Condition: Stable lory Diagnosis - Essential (primary) hypertension lory - Headache lory - Hypokalemia lory Followup: lory - With: Ender Ritchie MD - When: 2 - 3 days - Reason: Recheck today's complaints, Continuance of care, Re-evaluation by your physician Discharge Instructions: - Discharge Summary Sheet [facility] - Potassium Content of Foods lory - General Headache Without Cause lory - Hypertension, Adult lory - Hypertension, Adult, [id number] lory - How to Take Your Blood Pressure, [id number] lory - General Headache Without Cause, [id number] lory - Hypokalemia lory - Managing Your Hypertension [facility] Forms: - Medication Reconciliation Form [facility] - Thank You Letter [facility] - Antibiotic Education lory - Prescription Opioid Use lory - Patient Portal Instructions [facility] - Leadership Thank You Letter [facility] Prescriptions: - Fioricet with Codeine [id number] mg Oral capsule - take 1 capsule ORAL route every 4 hours MAX 6 TABS IN 24 HRS; 15 capsule; [facility] Refills: 0, Product Selection Permitted - ondansetron 4 mg Oral Tablet,disintegrating - take 1 tablet ORAL route every 6-8 hours for 5 days; 20 tablet; Refills: 0, [facility] Product Selection Permitted Signatures: Dispatcher [employer] Octaviano Garza MD MD cha Williams, Irene, RN RN Yuko Alejandro RN RN me1
[2023-12-28 17:35] VITALS: BP 146/85; TEMP 98.2; O2SAT 97
--- NOTE | 2023-12-31 14:26 | EKG ---
Test Date: 2023-12-28 Test Time: 12:49:18 [employer]: FAITH MEASUREMENT RESULTS: Intervals: Rate: 69 RI: 262 QRSD: 66 QT: 386 QTc: 413 [place]: P: 75 RI: 262 QRS: 37 T: 37 INTERPRETIVE STATEMENTS: Sinus rhythm with 1st degree AV block Otherwise normal ECG Compared to ECG 10/23/2023 21:57:27 No significant changes Electronically Signed On 12-31-23 14:16:46 CDT by Mike Merino
== END ==
LOC: ER 12:15
DX: I10 Essential (primary) hypertension (principal); R51.9 Headache, unspecified; E87.6 Hypokalemia; Z86.73 Personal history of transient ischemic attack (TIA), and cerebral infarction without residual deficits; Z88.1 Allergy status to other antibiotic agents
CPT/HCPCS: 96361; 93005; 85025; 80048; 36415; 83735; 85610; 80076; 84484; 83880; 70450; 71045; 96375; 96374; 99284; J3010; J2405; J7030